=== PATIENT | male | born 1955 | race Caucasian/White ===

== ENCOUNTER → 2017-05-02 | Outpatient (CLI) | payer BC ==
[2017-05-02 11:49] LABS: Basophils # (A) 0.1 k/uL (0-0.2); Basophils % (A) 1 %; CH 32.7; CHCM 33.8; Eosinophils # (A) 0.2 k/uL (0-0.7); Eosinophils % (A) 3 %; HCT 52.8 % (39.0-53.0); HDW 2.83; HGB 17.1 gm/dL (13.0-17.5); Luc # (Auto) 0.22; Luc % (Auto) 3; Lymphocytes # (A) 2.9 k/uL (1.0-4.8); Lymphocytes % (A) 34 %; MCH 31.7 pg (25.0-35.0); MCHC 32.5 g/dL (31.0-37.0); MCV 97.5 fL (80.0-100.0); Mean Platelet Volume 8.8; Monocytes # (A) 0.5 k/uL (0-1.0); Monocytes % (A) 6 %; Neutrophils # (A) 4.4 k/uL (1.3-7.7); Neutrophils % (A) 53 %; RBC 5.42 m/uL (4.30-5.90); RDW 15.5 % (11.5-15.5); WBC 8.3 k/uL (3.8-10.6); WBC (Perox) 7.61
[2017-05-02 12:52] LABS: ALT 25 U/L (21-72); AST 21 U/L (17-59); Alkaline Phosphatase 45 U/L (38-126); Anion Gap 13 mmol/L; Blood Urea Nitrogen 21 mg/dL (9-20); Calcium 9.6 mg/dL (8.4-10.2); Carbon Dioxide 24 mmol/L (22-30); Chloride 104 mmol/L (98-107); Cholesterol 191 mg/dL (<200); Glucose 79 mg/dL (74-99); HDL Cholesterol 65 mg/dL (40-60); Non-African American GFR(MDRD) >60 (>60 ml/min/1.73 sqM); Sodium 141 mmol/L (137-145); Total Bilirubin 0.5 mg/dL (0.2-1.3); Total Protein 7.7 g/dL (6.3-8.2)
[2017-05-02 14:48] LABS: Hemoglobin A1C 5.2 % (4.2-6.1)
[2017-05-05 08:17] LABS: HCV Qualitative Result Not detected (Not detected)
== END | disposition home or self-care (01) ==
LOC: LABWHC1 11:06
PROVIDERS: ATTEND Internal Medicine
DX: E78.5 Hyperlipidemia, unspecified (principal); J44.9 Chronic obstructive pulmonary disease, unspecified; E11.9 Type 2 diabetes mellitus without complications; G89.4 Chronic pain syndrome; I10 Essential (primary) hypertension
CPT/HCPCS: 36415; 80053; 80061; 83036; 84439; 84443; 85025; 86803; 87522

== ENCOUNTER → 2018-05-25 | Outpatient (CLI) | payer MEDICARE ==
[2018-05-25 11:44] LABS: HCT 47.6 % (39.0-53.0); HGB 15.5 gm/dL (13.0-17.5); MCH 29.9 pg (25.0-35.0); MCHC 32.6 g/dL (31.0-37.0); MCV 91.7 fL (80.0-100.0); Mean Platelet Volume 8.1; Platelet Count 204 k/uL (150-450); RBC 5.19 m/uL (4.30-5.90); WBC 8.9 k/uL (3.8-10.6)
[2018-05-25 13:48] LABS: Eosinophils # (M) 0.09 k/uL (0-0.7); Lymphocytes # (M) 3.29 k/uL (1.0-4.8); Monocytes # (M) 0.53 k/uL (0-1.0); Neutrophils # (M) 4.98 k/uL (1.3-7.7); Neutrophils % (M) 56 %; Nucleated Red Blood Cells 0 /100 WBC (0-0); Total Cells Counted 100
[2018-05-25 16:31] LABS: T4, Free (Free Thyroxine) 1.3 ng/dL (0.80-1.80)
[2018-05-25 16:42] LABS: Albumin 4.2 g/dL (3.80-4.90); Albumin/Globulin Ratio 1.83 (1.20-2.10); Anion Gap 6.9 mmol/L (4.00-12.00); Carbon Dioxide 26.1 mmol/L (21.6-31.8); Globulin 2.3 g/dL (2.1-3.7); LDL Cholesterol,Calculated 83.8 mg/dL (0.0-131.0); Potassium 3.9 mmol/L (3.5-5.5); Total Bilirubin 0.3 mg/dL (0.2-1.2); Total Protein 6.5 g/dL (6.2-8.2); VLDL Calculation 46.2 mg/dL (5.00-40.00)
[2018-05-25 19:03] LABS: Hemoglobin A1C 5.7 % (4.0-6.0)
== END | disposition home or self-care (01) ==
LOC: LABWHC1 10:57
PROVIDERS: ATTEND Internal Medicine
DX: Z00.00 Encounter for general adult medical examination without abnormal findings (principal); I10 Essential (primary) hypertension; E78.5 Hyperlipidemia, unspecified; E11.9 Type 2 diabetes mellitus without complications
CPT/HCPCS: 36415; 80053; 80061; 83036; 84439; 84443; 85027

== ENCOUNTER → 2018-10-06 | Outpatient (CLI) | payer MEDICARE ==
--- NOTE | 2018-10-06 15:50 | CT ---
EXAMINATION TYPE: CT chest w con DATE OF EXAM: 10/06/2018 COMPARISON: Correlation radiograph 09/21/2018 HISTORY: 63-year-old male abnormal chest x-ray. hx of COPD TECHNIQUE: Contiguous axial scanning of the chest after the administration of 92cc mL of Isovue 300. Coronal/sagittal reconstructions performed. CT DLP: 788mGycm. Automatic exposure control utilized for a dose reduction. FINDINGS: Heart normal size without pericardial effusion. Coronary vessel calcifications are present. Aorta normal caliber with moderate atherosclerotic arch calcifications and conventional arch vessel b ranching anatomy. Tiny 9 mm hypodense nodule right lobe of the thyroid gland. There is right peritracheal lymphadenopathy measuring up to 3.4 cm and subcarinal lymphadenopathy tatiana suring 2.6 cm. There is right hilar mass encasing the distal right main pulmonary artery and its branches and partia lly encasing the right upper lobe bronchus as well. The mass abuts the anterolateral margin of the br onchus intermedius and extends down to the level of its bifurcation. The mass measures approximately 5.8 cm AP by 4.6 cm wide by 4.9 cm craniocaudal. It cuts off the anterior segmental right upper lobe bronchus causing extensive postobstructive consol idation and volume loss. Additional patchy airspace opacity is present peripherally in the inferior right upper lobe at the mi dlung level. No pleural effusion or nodule seen in the left lung. Visualized upper abdomen shows a 1.5 cm gallstone and marked hepatic steatosis. No mass identified wi thin the adrenal glands. Bones: Moderate degenerative disc disease mid thoracic spine with accentuated midthoracic kyphosis. IMPRESSION: 1. Right hilar mass measuring approximately 5.8 x 4.6 x 4.9 cm encasing the distal right main pulmona ry artery, partially encasing the right upper lobe bronchus, and cutting off the anterior segmental r ight upper lobe branch. The mass extends down, abutting the anterior wall of the bronchus intermedius to the level of its bifurcation. 2. Metastatic right paratracheal and subcarinal lymphadenopathy (measuring up to 3.4 and 2.6 cm, resp ectively). 3. Severe postobstructive pneumonitis and volume loss anterior segment right upper lobe and additiona l patchy postoperative pneumonitis peripheral right midlung. 4. Hepatic steatosis.
== END ==
LOC: RADCTMAIN 14:16
PROVIDERS: ATTEND Internal Medicine Critical Care Medicine
DX: J18.9 Pneumonia, unspecified organism (principal); J44.9 Chronic obstructive pulmonary disease, unspecified; R59.0 Localized enlarged lymph nodes
CPT/HCPCS: 82565; 84520; 71260; 36415; Q9967

== ENCOUNTER 2018-10-13 11:14 | Day surgery (SDC) | payer MEDICARE ==
[2018-10-12 09:01] VITALS: BMI 38.4
[~2018-10-13 11:14] MED LIST: ALBUTEROL NEB (CONC) 2.5 MG/0.5 ML INHALATION ONE; LACTATED RINGERS 1,000 ML IV SCH; LIDOCAINE 2% (PF) 20 MG/ML 5 ML VIAL INHALATION ONE; LIDOCAINE VISCOUS 300 MG/15 ML CUP MUCOUS MEM ONE
[2018-10-13 11:45] LABS: Glucose,Whole Blood 132 mg/dL (75-99)
[2018-10-13] MEDS ORDERED: PROPOFOL 10 MG/ML 20 ML VIAL IV ONE (12:38)
[2018-10-13] MEDS ORDERED: KETAMINE 10 MG/ML 20 ML VIAL ONE (12:38)
[2018-10-13] MEDS ORDERED: LIDOCAINE 1% INJ 10MG/ML (20 ML MDV) ONE (12:38)
[2018-10-13] MEDS ORDERED: fentaNYL (PF) 50 MCG/ML 2 ML AMP ONE (12:38)
[2018-10-13] MEDS ORDERED: MIDAZOLAM 2 MG/2 ML VIAL ONE (12:38)
[2018-10-13] MEDS ORDERED: LIDOCAINE 2% INJ 20 MG/ML INTRATRACH ONE (13:43)
[2018-10-13 13:58] VITALS: TEMP 96.8
[2018-10-13 14:06] LABS: Glucose,Whole Blood 130 mg/dL (75-99)
[2018-10-13 14:20] VITALS: RESP 16
[2018-10-13] MEDS ORDERED: LACTATED RINGERS 1,000 ML IV ONE (14:20)
[2018-10-13 14:44] VITALS: BP 147/85; PULSE 89
--- NOTE | 2018-10-13 17:44 | PCN ---
PROCEDURE NOTE PROCEDURE PERFORMED: Bronchoscopy and endobronchial biopsy of the right upper lobe bronchial endobronchial tumor, brushings of endobronchial tumor/right upper lobe, washings of right upper lobe, and Koo needle aspiration of the anterior carinal lymph node. PREOPERATIVE DIAGNOSIS: Lung mass consistent with bronchogenic carcinoma and positive PET scan. POSTOPERATIVE DIAGNOSIS: Lung carcinoma. The exact the pathology is yet to be determined. ANESTHESIA USED: IV conscious sedation. PROCEDURE: The patient was placed in the supine position, he was prepared according to the bronchoscopy protocol. O2 was applied via nasal cannula, and we monitored his O2 saturation continuously. Blood pressure was intermittently monitored, and cardiac rhythm was continuously monitored. After adequate IV conscious sedation, the area of the right nostril was anesthetized with lidocaine topically. Then the bronchoscope was advanced through the right naris down to the area of the vocal cords, which were noted to be patent. Lidocaine was applied over the vocal cords, the bronchoscope was advanced further down. We examined the trachea, palma, right upper lobe, right middle lobe, right lower lobe, left upper lobe, lingula, and left lower lobe. The findings were positive for extrinsic compression on the distal end of the trachea from the right side, the palma was noted to be full, and the right upper lobe bronchus was noted to be quite full and generous. Then as we entered the right upper lobe, there was endobronchial tumors in the anterior segment of the right upper lobe and another endobronchial tumor was also noted in the apical segment of the right upper lobe. Then we examined the right middle lobe, which was basically intact and as we entered into the right lower lobe, there was clearly some extrinsic compression from the upper aspect down on the right upper lobe with slight narrowing of the right lower lobe bronchus and the lower segments, but they were noted to be patent overall. Then we moved to the left side, and left side was examined, no evidence of any endobronchial tumors or pathology noted on the left side. Then the bronchoscope was placed in the anterior segment of the right upper lobe, and 3 endobronchial biopsies were taken from the endobronchial tumor. Could not do any more biopsies because there was bleeding after each biopsy, and the bleeding was roughly about 30 mL total. Brushings were done. Washings from the right upper lobe were done. Then, we moved into the area of the palma where in there was extrinsic compression on the right carinal area, and a Koo needle aspiration was done at twice from that area. 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 Procedure was well tolerated, no evidence of any immediate complications. The patient was later transferred from the bronchoscopy suite to the recovery room, and I updated him on the findings. EDELMIRA / CARISSAN: [id number] /
== END 2018-10-13 15:05 | disposition home or self-care (01) ==
LOC: ORWHC2ENDO 11:14
PROVIDERS: ATTEND Internal Medicine
DX: R91.8 Other nonspecific abnormal finding of lung field (principal); J44.9 Chronic obstructive pulmonary disease, unspecified; E78.00 Pure hypercholesterolemia, unspecified; E11.9 Type 2 diabetes mellitus without complications; I10 Essential (primary) hypertension; F41.1 Generalized anxiety disorder; M10.9 Gout, unspecified; G89.4 Chronic pain syndrome; G47.33 Obstructive sleep apnea (adult) (pediatric); Z99.89 Dependence on other enabling machines and devices; F17.210 Nicotine dependence, cigarettes, uncomplicated; Z85.819 Personal history of malignant neoplasm of unspecified site of lip, oral cavity, and pharynx; Z79.84 Long term (current) use of oral hypoglycemic drugs; Z79.51 Long term (current) use of inhaled steroids; Z79.891 Long term (current) use of opiate analgesic; Z79.899 Other long term (current) drug therapy
CPT/HCPCS: 94640; 88104; 88108; 88305; 88173; 88342; 88341; 87070; 87205; 87116; 87206; 31629; 31625; J2001 ×3; J2250; J3010; J2704; 31623; 31624; 31628

== ENCOUNTER → 2018-10-28 | Outpatient (CLI) | payer MEDICARE ==
--- NOTE | 2018-10-28 11:14 | MR ---
EXAMINATION TYPE: MR brain wo/w con DATE OF EXAM: 10/28/2018 10:59 AM COMPARISON: NONE HISTORY: Lung CA, headache CONTRAST: Patient received 12.5 mL intravenous Gadavist gadolinium contrast. Multiplanar and multispin-echo imaging of the brain was performed . Pre and post contrast enhanced i mages are obtained. The ventricles, basal cisterns and sulci overlying the cerebral convexities are mildly enlarged. There is evidence of mild periventricular white matter ischemic demyelination. Remote deep white matter insults are also noted. No acute edema is seen on diffusion weighted imaging. There is no evidence for midline shift or mass effect. Acute intracranial hemorrhage or extra-axial collection is not evident. No enhancing lesions are seen. The paranasal sinuses and mastoid air cells are well-aerated. IMPRESSION: Age-related atrophic and chronic small vessel ischemic change. No acute intracranial process at this time. No enhancing lesions are seen.
== END | disposition home or self-care (01) ==
LOC: RADMRIMAIN 10:14
PROVIDERS: ATTEND Internal Medicine Hematology & Oncology
DX: C34.91 Malignant neoplasm of unspecified part of right bronchus or lung (principal); G31.1 Senile degeneration of brain, not elsewhere classified; I67.82 Cerebral ischemia; R51 Headache
CPT/HCPCS: 70553; A9585

== ENCOUNTER → 2018-12-31 | Outpatient (CLI) | payer MEDICARE ==
--- NOTE | 2018-12-31 12:03 | CT ---
EXAMINATION TYPE: CT ChestAbdPelvis w con DATE OF EXAM: 12/31/2018 COMPARISON: Prior PET/CT October 10, 2018. HISTORY: lung CA, observation for mets, currently undergoing chemotherapy and radiation treatment. CT DLP: 2009.6 mGycm. Automated Exposure Control for Dose Reduction was Utilized. CONTRAST: CT scan of the thorax, abdomen and pelvis is performed with oral and with IV Contrast, patient inject ed with 100 mL of Isovue 300. FINDINGS: LUNGS: There is marked interval improvement in right suprahilar mass or neoplasm with some residual s oft tissue measuring approximately 3.0 x 2.0 cm on axial image 26 surrounding upper middle lobe bronc hi causing narrowing. There is marked interval improvement in extension of masslike consolidation or obstructive atelectasis to the anterior right midlung from prior study. Some lateral scarring or atel ectatic change axial image 27 through 29 is redemonstrated stable or minimally improved from PET/CT. No new nodules or masses. No pleural effusion or pneumothorax. MEDIASTINUM: There is marked improvement in subcarinal lymph node now measuring 1.0 x 0.8 cm axial im age 26. There is marked improvement in right paratracheal lymph node now measuring 1.1 x 0.8 cm axial image 19. No new greater than 1 cm lymph nodes are present. Tiny pericardial effusion anterior infer ior aspect axial image 43 is new from prior study. No cardiomegaly is present. Moderate coronary rogelio ry calcification in the distribution is present which is noted marker frontal and coronary artery dis ease OTHER: No additional significant abnormality is seen. LIVER/GB: Dependent small gallstones are present liver is low density consistent with diffuse fatty i nfiltration. PANCREAS: No significant abnormality is seen. SPLEEN: No significant abnormality is seen. ADRENALS: No significant abnormality is seen. KIDNEYS: Symmetric cortical medullary uptake and excretion from both kidneys without hydronephrosis s een bilaterally. Anterior positioning or axis to both kidneys noted. Several apparent 1.6 cm cyst lat erally upper pole right kidney series 5 image 36. BOWEL: The oral contrast does not reach colonic level. Surgical changes from partial right-sided kike ctomy is redemonstrated with sutures axial image 62 anteriorly noted. No suspicious small or large maci wel dilatation. GENITAL ORGANS: No gross abnormality seen. LYMPH NODES: No greater than 1cm abdominal or pelvic lymph nodes are appreciated. OSSEOUS STRUCTURES: Moderate multilevel spurring is most prominent in the mid to lower thoracic spine . OTHER: Moderate to severe calcified plaque of aorta extends into branch vessels. Some scattered pelvi c phleboliths are present. IMPRESSION: Positive treatment response as detailed above. No new metastatic disease is present.
== END | disposition home or self-care (01) ==
LOC: RADCTMAIN 08:57
PROVIDERS: ATTEND Internal Medicine Hematology & Oncology
DX: C34.91 Malignant neoplasm of unspecified part of right bronchus or lung (principal)
CPT/HCPCS: 82565; 84520; 71260; 74177; 36415; Q9967 ×2

== ENCOUNTER 2019-01-07 15:05 | Emergency (ER) | payer MEDICARE ==
[2019-01-07 15:14] VITALS: BP 124/77; TEMP 97
--- NOTE | 2019-01-07 16:21 | ED ---
General Adult HPI - General Chief complaint: Weakness Stated complaint: Leg Pain Time Seen by Provider: 01/07/19 16:02 Source: patient, EMS Mode of arrival: EMS - History of Present Illness Initial comments: 63-year-old male with history of throat and lung cancer status post radiation currently on chemotherapy regimen every 3 weeks. Presenting today for chief complaint of bilateral lower extremity feet pain and coolness. Patient states his feet have been hurting him for the past 3-4 days with the left calf pain more increased than right. He states he is unable to walk secondary to the pain and feels that his feet are cold. Patient has a chest pain or shortness of breath he states he does have home oxygen for his COPD and emphysema. Patient denies any significant lower extremity swelling. He denies any nausea vomiting abdominal pain headache dizziness or any other associated symptoms. Patient denies any fever cough chills or night sweats. 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 - Related Data Home Medications Medication Instructions Recorded Confirmed Niacin [Niacin ER] 500 mg PO DAILY 06/06/14 01/07/19 Potassium Chloride ER [K-Dur 20] 20 meq PO DAILY 06/06/14 01/07/19 Tiotropium [place] [Spiriva] 1 puff INHALATION RT-DAILY 06/06/14 01/07/19 glipiZIDE [Glucotrol XL] 5 mg PO DAILY 06/06/14 01/07/19 metFORMIN HCL [Glucophage] 500 mg PO BID 06/06/14 01/07/19 Allopurinol [Zyloprim] 300 mg PO BID 10/12/18 01/07/19 Budesonide/Formoterol Fumarate 2 puff INHALATION RT-BID 10/12/18 01/07/19 [Symbicort 160-4.5 Mcg Inhaler] Cetirizine HCl [Zyrtec] 10 mg PO DAILY 10/12/18 01/07/19 Cholecalciferol [Vitamin D3] 2,000 unit PO DAILY 10/12/18 01/07/19 Cyanocobalamin (Vitamin B-12) 4,000 mcg PO DAILY 10/12/18 01/07/19 [Vitamin B-12] Furosemide [Lasix] 40 mg PO DAILY 10/12/18 01/07/19 [place]-3 Acid Ethyl Esters [Lovaza] 2 gm PO QID 10/12/18 01/07/19 Simvastatin 40 mg PO DAILY 10/12/18 01/07/19 Venlafaxine HCl [Effexor XR] 225 mg PO DAILY 01/07/19 01/07/19 oxyCODONE-APAP 10-325MG [Percocet 1 tab PO Q6H PRN 01/07/19 01/07/19 10-325 mg] Allergies Allergy/AdvReac Type Severity Reaction Status Date / Time No Known Allergies Allergy Verified 01/07/19 15:17 Review of Systems ROS Statement: Those systems with pertinent positive or pertinent negative responses have been documented in the HPI. ROS Other: All systems not noted in ROS Statement are negative. Past Medical History Past Medical History: Cancer, COPD, Diabetes Mellitus, Hyperlipidemia, Hypertension, Seizure Disorder, Sleep Apnea/CPAP/BIPAP Additional Past Medical History / Comment(s): uses cpap,hs "part of my colon was ", mononucleosis, epilepsy History of Any Multi-Drug Resistant Organisms: None Reported Past Surgical History: Bowel Resection Additional Past Surgical History / Comment(s): lip procedure Past Anesthesia/Blood Transfusion Reactions: No Reported Reaction Additional Past Anesthesia/Blood Transfusion Reaction / Comment(s): no hx blood transfusion Past Psychological History: Anxiety, Depression Smoking Status: Current every day smoker Past Alcohol Use History: Occasional Past Drug Use History: Marijuana - Past Family History Father Family Medical History: Coronary Artery Disease (CAD), Diabetes Mellitus, Hypertension General Exam - General Exam Comments Initial Comments: General: The patient is awake and alert, in no distress Eye: +2 mm pupils are equal, round and reactive to light, extra-ocular movements are intact. No nystagmus. There is normal conjunctiva bilaterally. No signs of icterus. Ears, nose, mouth and throat: There are moist mucous membranes and no oral lesions. Neck: The neck is supple, there is no tenderness or JVD. Cardiovascular: There is a increased rate and rhythm. No murmur, rub or gallop is appreciated. Respiratory: Lungs are clear to auscultation, respirations are non-labored, breath sounds are equal. No wheezes, stridor, rales, or rhonchi. Gastrointestinal: Large scar over midline abdomen. Soft, non-distended, non- tender abdomen without masses or organomegaly noted. There is no rebound or guarding present. No CVA tenderness. Musculoskeletal: Normal ROM, no tenderness. Strength 5/5. Sensation intact. femoral and popliteal pulses equal bilaterally 2+. no palpable DP and PT pulses. Cool distal to mid calf. Blue tint of right foot with bruising. Neurological: A&O x 3. CN II-XII intact, There are no obvious motor or sensory deficits. Coordination appears grossly intact. Speech is normal. Skin: Skin is warm and dry and no rashes or lesions are noted. Psychiatric: Cooperative, appropriate mood & affect, normal judgment. Course Vital Signs 01/07/19 01/07/19 01/07/19 15:07 17:21 18:10 Temperature 97 F L 97 F L Pulse Rate 119 H 66 66 Respiratory 18 16 16 Rate Blood Pressure 124/77 124/77 124/77 O2 Sat by Pulse 99 99 Oximetry - Reevaluation(s) Reevaluation #1: 01/07/19 16:20 b/l pulseless feet capillary refilll was > 6 seconds, Doppler and US were obtained no evidence of pulse. Vascular was consulted immediately and patient was evaluated by attending provider. Dr. Wayne states he will evaluate patient in the ER. EKG Findings - EKG Comments: EKG Findings:: Ventricular rate 112 bpm, [place] interval 236 ms, shortness duration 92 ms, QT/QTC 344/469 ms. This is sinus tachycardia with first-degree AV block. There is nonspecific ST and T-wave abnormalities. No specific ST elevation or depression. Medical Decision Making - Medical Decision Making Is a 63-year-old male presenting for pain for the past 2-3 days of the lower extremities b/l and coolness to palpation. No palpable pulses of the dorsalis pedis and the tibial pulses were noted on examination. After this examination and the only contacted by attending provider evaluate patient confirming pulselessness of bilateral lower extremities. He contacted vascular surgeon Dr. Bartholomew who did evaluate the person in emergency department. He states he believes the obstruction is between the popliteal and posterior tibial region. he staets patient will need localized TPA more than likely and recommended transfer to [facility]. With patient having sustained tachycardia and history of clotting disorder there was concern for possible coinciding pulmonary embolism. Heparin was initiated, high intensity per vascular recommendation. CT angiography chest was obtained prior to patient's transfer. CTA of the chest was only able to be obtained secondary to patients creatinine, vs CTA with runoff. Dr. Bartholomew states he does not need runoff, clinical diagnosis was made. He stated to go forward with CTA of chest. CTA revealed small right lower pulmonary embolism, no right heart strain, tropinin (-).. I spoke with accepting transferring provider Dr. Mitchell at [facility], who accepted admission after discussing case, laboratory studies. aPTT and CTA were pending at this time. He recommendd heparin. Herparin bolus was initiated however aPTT returned si gnificantly elevated, we cancelled order for heparin drip-per attending Dr. Denny recommendation. I attempted on multiple occasions to speak with Dr. Gonzales to discuss CTA results and aPTT. Message was left with nursing staff to give message after multiple attempts. - Lab Data Result diagrams: 01/07/19 16:25 01/07/19 16:25 Lab Results 01/07/19 01/07/19 01/07/19 Range/Units 16:25 16:25 16:25 WBC 12.4 H (3.8-10.6) k/uL RBC 3.13 L (4.30-5.90) m/uL Hgb 10.0 L (13.0-17.5) gm/dL Hct 28.3 L (39.0-53.0) % MCV 90.4 (80.0-100.0) fL MCH 32.1 (25.0-35.0) pg MCHC 35.5 (31.0-37.0) g/dL RDW 20.7 H (11.5-15.5) % Plt Count 88 L (150-450) k/uL Neutrophils % (Manual) 66 % Band Neutrophils % 4 % Lymphocytes % (Manual) 23 % Monocytes % (Manual) 6 % Metamyelocytes % 1 % Neutrophils # (Manual) 8.60 H (1.3-7.7) k/uL Lymphocytes # (Manual) 2.85 (1.0-4.8) k/uL Monocytes # (Manual) 0.74 (0-1.0) k/uL Metamyelocytes # (Man) 0.12 H (0) k/uL Nucleated RBCs 0 (0-0) /100 WBC Manual Slide Review Performed Hyperchromasia Slight Poikilocytosis Slight Anisocytosis Moderate PT (9.0-12.0) sec INR (<1.2) APTT (22.0-30.0) sec D-Dimer (<0.60) mg/L FEU Sodium 137 (137-145) mmol/L Potassium 3.5 (3.5-5.1) mmol/L Chloride 99 (98-107) mmol/L Carbon Dioxide 27 (22-30) mmol/L Anion Gap 11 mmol/L BUN 35 H (9-20) mg/dL Creatinine 1.69 H (0.66-1.25) mg/dL Est GFR (CKD-EPI)AfAm 49 (>60 ml/min/1.73 sqM) Est GFR (CKD-EPI)NonAf 42 (>60 ml/min/1.73 sqM) Glucose 143 H (74-99) mg/dL Plasma Lactic Acid Gómez (0.7-2.0) mmol/L Calcium 9.4 (8.4-10.2) mg/dL Total Bilirubin 1.1 (0.2-1.3) mg/dL AST 155 H (17-59) U/L ALT 56 (21-72) U/L Alkaline Phosphatase 61 (38-126) U/L Troponin I 0.018 (0.000-0.034) ng/mL Total Protein 6.8 (6.3-8.2) g/dL Albumin 3.9 (3.5-5.0) g/dL 01/07/19 01/07/19 Range/Units 17:01 17:01 WBC (3.8-10.6) k/uL RBC (4.30-5.90) m/uL Hgb (13.0-17.5) gm/dL Hct (39.0-53.0) % MCV (80.0-100.0) fL MCH (25.0-35.0) pg MCHC (31.0-37.0) g/dL RDW (11.5-15.5) % Plt Count (150-450) k/uL Neutrophils % (Manual) % Band Neutrophils % % Lymphocytes % (Manual) % Monocytes % (Manual) % Metamyelocytes % % Neutrophils # (Manual) (1.3-7.7) k/uL Lymphocytes # (Manual) (1.0-4.8) k/uL Monocytes # (Manual) (0-1.0) k/uL Metamyelocytes # (Man) (0) k/uL Nucleated RBCs (0-0) /100 WBC Manual Slide Review Hyperchromasia Poikilocytosis Anisocytosis PT 13.8 H (9.0-12.0) sec INR 1.3 H (<1.2) APTT 162.1 H* (22.0-30.0) sec D-Dimer 1.81 H (<0.60) mg/L FEU Sodium (137-145) mmol/L Potassium (3.5-5.1) mmol/L Chloride (98-107) mmol/L Carbon Dioxide (22-30) mmol/L Anion Gap mmol/L BUN (9-20) mg/dL Creatinine (0.66-1.25) mg/dL Est GFR (CKD-EPI)AfAm (>60 ml/min/1.73 sqM) Est GFR (CKD-EPI)NonAf (>60 ml/min/1.73 sqM) Glucose (74-99) mg/dL Plasma Lactic Acid Gó[place] 1.2 (0.7-2.0) mmol/L Calcium (8.4-10.2) mg/dL Total Bilirubin (0.2-1.3) mg/dL AST (17-59) U/L ALT (21-72) U/L Alkaline Phosphatase (38-126) U/L Troponin I (0.000-0.034) ng/mL Total Protein (6.3-8.2) g/dL Albumin (3.5-5.0) g/dL Disposition Clinical Impression: Leg pain, bilateral, Ischemic leg Disposition: OTHER INSTITUTION NOT DEFINED Condition: Serious Is patient prescribed a controlled substance at d/c from ED?: No Referrals: Juan Carlos Ricks MD [Primary Care Provider] - 1-2 days Time of Disposition: 17:11 - Out of Hospital Transfer - Req. Specs Out of Hospital Transfer - Requested Specifics: Other Emergency Center ([facility]
[2019-01-07 17:01] LABS: Albumin 3.9 g/dL (3.5-5.0); Calcium 9.4 mg/dL (8.4-10.2); Potassium 3.5 mmol/L (3.5-5.1); Total Bilirubin 1.1 mg/dL (0.2-1.3); Total Protein 6.8 g/dL (6.3-8.2)
[2019-01-07 17:10] LABS: Anisocytosis Moderate; HCT 28.3 % (39.0-53.0); Hyperchromasia Slight; MCH 32.1 pg (25.0-35.0); MCHC 35.5 g/dL (31.0-37.0); MCV 90.4 fL (80.0-100.0); Mean Platelet Volume 9.1; Poikilocytosis Slight; RBC 3.13 m/uL (4.30-5.90); RDW 20.7 % (11.5-15.5); WBC 12.4 k/uL (3.8-10.6)
[2019-01-07] MEDS ORDERED: HEPARIN SODIUM,PORCINE 5,000 UNIT/ML 1 ML VIAL IV PRN (17:10)
[2019-01-07] MEDS ORDERED: HEPARIN SODIUM,PORCINE 10,000 UNIT/ML 1 ML VIAL IV ONE (17:10)
[2019-01-07] MEDS ORDERED: HEPARIN SOD,PORK IN 0.45% NACL 25,000 UNIT in 0.45% NACL 1 250ML.BAG IV SCH (17:15)
[2019-01-07] MEDS ORDERED: MORPHINE SULFATE 4 MG/ML SYRINGE IVP STA (17:19)
[2019-01-07 17:22] LABS: Platelet Count 88 k/uL (150-450)
[2019-01-07 17:24] VITALS: PULSE 66; RESP 16
[2019-01-07 17:25] LABS: Band Neutrophils % 4 %; Lymphocytes # (M) 2.85 k/uL (1.0-4.8); Metamyelocytes # (M) 0.12 k/uL (0); Metamyelocytes % 1 %; Monocytes # (M) 0.74 k/uL (0-1.0); Neutrophils % (M) 66 %; Nucleated Red Blood Cells 0 /100 WBC (0-0); Total Cells Counted 100
--- NOTE | 2019-01-07 17:43 | XR ---
EXAMINATION TYPE: XR chest 2V DATE OF EXAM: 01/07/2019 COMPARISON: 09/21/2018 HISTORY: Weakness TECHNIQUE: Frontal and lateral views of the chest are obtained. FINDINGS: There is no heart failure. There is some coarse linear density in the lateral right upper lobe. The other lung [place] are clear. There is no pleural effusion. IMPRESSION: There is chronic linear infiltrate and atelectasis in the right upper lobe not significa ntly different than last exam. Normal heart.
[2019-01-07 17:47] LABS: INR 1.3 (<1.2); Prothrombin Time 13.8 sec (9.0-12.0)
[2019-01-07 17:53] LABS: D-Dimer 1.81 mg/L FEU (<0.60)
[2019-01-07 17:57] LABS: Partial Thromboplastin Time 162.1 sec (22.0-30.0)
--- NOTE | 2019-01-07 18:05 | CT ---
EXAMINATION TYPE: CT angio chest DATE OF EXAM: 01/07/2019 5:39 PM COMPARISON: None HISTORY: Ischemic limbs. CT DLP: mGycm Automated exposure control for dose reduction was used. CONTRAST: CTA scan of the thorax is performed , patient injected with mL of , pulmonary embolism protocol. . The contrast was Isovue 16 mL. There are 3-D post processed images. FINDINGS: There is patchy linear infiltrate and atelectasis in both lower lobes. There is wedge-shaped airspace patchy consolidation in the lateral aspect of the right middle lobe adjacent to the major fissure. T here is no pericardial effusion. There is no pleural effusion. Upper abdominal soft tissues are intact. There are enlarged right bronchial lymph nodes that measure up to 2 cm. There is no mediastinal adeno sinan. Thoracic aorta is atheromatous. There is irregular plaque formation within the lumen of the de scending thoracic aorta. There is spurring in the thoracic spine. I see no bony destructive process. There is small filling defect in a branch of the posterior basal segment right lower lobe pulmonary a rtery. IMPRESSION: COARSE INFILTRATE AND ATELECTASIS IN BOTH LOWER LOBES AND ALSO THE RIGHT MIDDLE LOBE WITH RIGHT BRONC HIAL ADENOPATHY. THIS MORE LIKELY RELATES TO INFLAMMATORY DISEASE. SMALL EMBOLISM IN RIGHT LOWER LOBE PULMONARY ARTERY. EXTENSIVE PLAQUE FORMATION WITHIN THE THORACIC AORTA WITH IRREGULAR SURFACE THAT SUGGESTS A SOURCE OF EMBOLIC DISEASE. THIS EXAM WAS DISCUSSED WITH ER PHYSICIAN AT 6:00 PM.
--- NOTE | 2019-01-07 20:10 | HP ---
HISTORY AND PHYSICAL This is a 63 -year-old gentleman who came to the emergency room with 4 days duration of the left leg pain. The patient has history of CA of the lung, post chemo and radiation. The patient also has a history of COPD on home oxygen. PAST SURGICAL HISTORY: Patient had a colon resection in the past. PHYSICAL EXAMINATION: Patient was seen in his room. The patient has excruciating pain to the left calf. Brachial radial pulses are present. Femorals are 2+. There is no Doppler signal noted in the right and left foot. The patient has some motor function present on the left side. Right side also. Patient has marked tenderness in the left calf tenderness. IMPRESSION: Bilateral lower extremity ischemia. The patient has Factor XII deficiency. PLAN: Heparinize the patient. The patient will need a tPA and discussed with Dr. Domingo Miranda. The patient will have a tPA and we will transfer him to [facility]. Risks and complications discussed with the patient and family. They understand. Thank you very much for this consultation. EDELMIRA / CARISSAN: [id number] /
== END 2019-01-07 18:14 | disposition other institution (70) ==
LOC: EC 15:05
DX: I99.8 Other disorder of circulatory system (principal); D68.2 Hereditary deficiency of other clotting factors; J44.9 Chronic obstructive pulmonary disease, unspecified; Z85.118 Personal history of other malignant neoplasm of bronchus and lung; Z92.21 Personal history of antineoplastic chemotherapy; Z92.3 Personal history of irradiation; E11.9 Type 2 diabetes mellitus without complications; E78.5 Hyperlipidemia, unspecified; I10 Essential (primary) hypertension; F41.9 Anxiety disorder, unspecified; F32.9 Major depressive disorder, single episode, unspecified; G47.30 Sleep apnea, unspecified; R00.0 Tachycardia, unspecified; F17.200 Nicotine dependence, unspecified, uncomplicated; Z79.51 Long term (current) use of inhaled steroids; Z79.899 Other long term (current) drug therapy; Z79.84 Long term (current) use of oral hypoglycemic drugs
CPT/HCPCS: 36415; 93005; 85379; 80053; 83605; 84484; 85025; 85610; 85730; 71046; 71275; 99285; 96374; 96375; J2270; J1644; Q9967

== ENCOUNTER → 2019-02-16 | Outpatient (CLI) | payer MEDICARE ==
[2019-02-16 21:42] LABS: African American GFR (CKD) 81.8 (60.0-200.0)
== END | disposition home or self-care (01) ==
LOC: LABWHC1 11:46
PROVIDERS: ATTEND Surgery
DX: I74.3 Embolism and thrombosis of arteries of the lower extremities (principal)
CPT/HCPCS: 36415; 82565; 84520

== ENCOUNTER → 2019-02-23 | Outpatient (CLI) | payer MEDICARE ==
--- NOTE | 2019-02-23 15:25 | CT ---
EXAMINATION TYPE: CT angio abd aorta w/Runoff DATE OF EXAM: 02/23/2019 8:36 AM COMPARISON: None HISTORY: Femoral occlusion CT DLP: 2657 mGycm Automated exposure control for dose reduction was used. TECHNIQUE: Performed with IV Contrast, patient injected with 125 mL of Isovue 370. . FINDINGS: Atheromatous plaquing is within the aorta. Vascular calcification is present. The renal arteries are patent. No aneurysmal dilatation is evident. Early bifurcation is unremarkable. Internal and external iliac vessels are patent. Common femoral arteries are patent. Vascular calcification is present. Pro eder femoris vessels are patent bilaterally. Right lower extremity and Superficial femoral artery: At the origin of the right superficial femoral artery there appears to be obstruction without contrast present. This extends through to the trifurca tion vessels. Collateral flow may fills small trifurcation vessels on the right. Left lower extremity and Superficial femoral artery: The left superficial femoral artery is patent. D ense vascular calcification is in the proximal popliteal artery, likely with stenosis. Popliteal rogelio ry is patent. Trifurcation vessels are identified. The posterior tibial and peroneal arteries. The pa tent within the calf. Posterior tibial artery crosses the level of the ankle. IMPRESSION: 1. OBSTRUCTION OF THE RIGHT SUPERFICIAL FEMORAL ARTERY AT ITS ORIGIN. SMALL COLLATERAL VESSEL MAY REC ONSTITUTE A TRIFURCATION VESSEL. 2. EXTENSIVE VASCULAR CALCIFICATION WITHIN THE BILATERAL LOWER EXTREMITIES.
== END | disposition home or self-care (01) ==
LOC: RADCTMAIN 07:21
PROVIDERS: ATTEND Surgery
DX: I70.203 Unspecified atherosclerosis of native arteries of extremities, bilateral legs (principal); I70.8 Atherosclerosis of other arteries
CPT/HCPCS: 75635; Q9967

== ENCOUNTER → 2019-03-25 | Outpatient (CLI) | payer MEDICARE ==
[2019-03-25 17:00] LABS: Anisocytosis Slight; Basophils # (A) 0.1 k/uL (0-0.2); Basophils % (A) 1 %; Eosinophils # (A) 0.7 k/uL (0-0.7); Eosinophils % (A) 6 %; HCT 40.3 % (39.0-53.0); HGB 12.7 gm/dL (13.0-17.5); Hypochromasia Slight; Lymphocytes # (A) 1.3 k/uL (1.0-4.8); Lymphocytes % (A) 12 %; MCH 32.5 pg (25.0-35.0); MCHC 31.4 g/dL (31.0-37.0); MCV 103.4 fL (80.0-100.0); Macrocytosis Moderate; Mean Platelet Volume 8.2; Monocytes # (A) 0.7 k/uL (0-1.0); Monocytes % (A) 6 %; Neutrophils % (A) 73 %; Platelet Count 248 k/uL (150-450); Poikilocytosis Slight; RDW 17.9 % (11.5-15.5); WBC 10.9 k/uL (3.8-10.6)
[2019-03-25 17:10] LABS: ALT 26 U/L (21-72); AST 42 U/L (17-59); African American GFR (CKD) >90 (>60 ml/min/1.73 sqM); Albumin 4.7 g/dL (3.5-5.0); Alkaline Phosphatase 45 U/L (38-126); Anion Gap 12 mmol/L; Blood Urea Nitrogen 17 mg/dL (9-20); Calcium 10.2 mg/dL (8.4-10.2); Carbon Dioxide 26 mmol/L (22-30); Chloride 103 mmol/L (98-107); Glucose 72 mg/dL (74-99); Potassium 3.8 mmol/L (3.5-5.1); Sodium 141 mmol/L (137-145); Total Bilirubin 0.4 mg/dL (0.2-1.3); Total Protein 8.6 g/dL (6.3-8.2)
[2019-03-26 04:25] LABS: Hemoglobin A1C 3.9 % (4.0-6.0)
== END | disposition home or self-care (01) ==
LOC: LABPAT 16:16
PROVIDERS: ATTEND Surgery
DX: Z01.812 Encounter for preprocedural laboratory examination (principal); I96 Gangrene, not elsewhere classified
CPT/HCPCS: 80053; 83036; 84134; 85025

== ENCOUNTER 2019-04-08 08:27 | Day surgery (SDC) | payer MEDICARE ==
[2019-04-05 14:16] VITALS: BMI 29.5
[~2019-04-08 08:27] MED LIST changes: -ALBUTEROL NEB (CONC) 2.5 MG/0.5 ML INHALATION ONE; +DEXAMETHASONE SOD PHOSPHATE 10 MG/ML 1 ML VIAL IV ONE; +HYDROmorphone 0.5 MG/0.5 ML SYRINGE IVP PRN; -LIDOCAINE 2% (PF) 20 MG/ML 5 ML VIAL INHALATION ONE; -LIDOCAINE VISCOUS 300 MG/15 ML CUP MUCOUS MEM ONE; +ONDANSETRON 4 MG/2 ML VIAL IVP ONE; +SCOPOLAMINE 1.5MG/72HR PATCH TRANSDERM ONE
[2019-04-08 08:55] VITALS: TEMP 96.7
[2019-04-08] MEDS ORDERED: DEXAMETHASONE SOD PHOS (MDV) 100 MG/10 ML VIAL IVP ONE (09:03)
[2019-04-08] MEDS ORDERED: LACTATED RINGERS 1,000 ML IV ONE (09:03)
[2019-04-08] MEDS ORDERED: ONDANSETRON 4 MG/2 ML VIAL IVP ONE (09:03)
[2019-04-08 09:05] LABS: Glucose,Whole Blood 107 mg/dL (75-99)
[2019-04-08] MEDS ORDERED: PROPOFOL 10 MG/ML 20 ML VIAL IV ONE (09:20)
[2019-04-08] MEDS ORDERED: MIDAZOLAM (PF) 2 MG/2 ML VIAL IVP ONE (09:20)
[2019-04-08] MEDS ORDERED: MIDAZOLAM 2 MG/2 ML VIAL ONE (09:20)
[2019-04-08] MEDS ORDERED: PHENYLEPHRINE-0.9% NACL SYG 1 MG/10 ML SYRINGE ONE (09:20)
[2019-04-08 10:13] VITALS: RESP 18
--- NOTE | 2019-04-08 10:16 | P.OP ---
Date of Procedure: 04/08/19 Preoperative Diagnosis: Gangrene right fifth toe Open surgical wound right lower extremity (vein harvest). Postoperative Diagnosis: Same Procedure(s) Performed: #1: Amputation right fifth toe at proximal phalanx. #2 : Debridement (sharp) wound right lower extremity Implants: None Anesthesia: regional Surgeon: Brandon Banegas Estimated Blood Loss (ml): 4 IV fluids (ml): 100 Urine output (ml): 0 Pathology: other (Amputated segment right fifth toe) Condition: stable Disposition: PACU Indications for Procedure: Gangrene right fifth toe Open wound right lower extremity Description of Procedure: Patient was brought the upper and placed in supine position where he received a local block performed by the department of anesthesiology. Patient received intravenously administered prophylactic antibiotics in the perioperative phase. The right lower extremity was then sterilely prepped and draped in usual manner. The right fifth toe was frankly gangrenous and the gangrenous section was amputated with a bone cutter. Utilizing a rongeur the proximal portion of the bone was then removed. The wound was irrigated and was closed with 4-0 nylon suture. Attention was turned to the wound of the right lower extremity. Significant fibrin deposition was noted. The wound measured 11 cm x 3 cm x 1.5 cm. This was debridable with a surgical scalpel blade of fibrin deposition. Good granular tissue was noted throughout essentially the entirety of the wound. The wound along the medial aspect of the leg was then dressed with sweats saline moistened gauze and dry dressing over top. Dry dressing was placed over the amputated portion of the right fifth toe. Patient tolerated the procedure well and was transferred to the recovery area in satisfactory and stable condition.
[2019-04-08 10:17] LABS: Glucose,Whole Blood 108 mg/dL (75-99)
[2019-04-08 10:35] VITALS: BP 137/85; PULSE 97
--- NOTE | 2019-04-08 13:05 | P.ANPRN ---
Procedure Note - Anesthesia - Nerve Block Performed Right Popliteal Single Time Out Performed: Yes Date of Procedure: 04/08/19 Procedure Start Time: Procedure Stop Time: Location of Patient Procedure: PreOp Indication: Acute Post-Operative Pain, Requested by Surgeon Sedation Type: Sedate with meaningful contact maintained Preparation: Sterile Prep Position: Left Lateral Catheter: None Needle Types: Pajunk Needle Gauge: 20 Ultrasound used to visualize needle placement: Yes Ultrasound used to observe medication spread: Yes Injectate: 0.5% Ropivacaine (see comment for volume) (20 ml) Blood Aspirated: No Pain Paresthesia on Injection Noted: No Resistance on Injection: Normal Image Stored and Saved: Yes Events: Uneventful and Well Tolerated
== END 2019-04-08 10:58 | disposition home or self-care (01) ==
LOC: OR 08:27
PROVIDERS: ATTEND Surgery
DX: E11.52 Type 2 diabetes mellitus with diabetic peripheral angiopathy with gangrene (principal); E11.621 Type 2 diabetes mellitus with foot ulcer; E11.69 Type 2 diabetes mellitus with other specified complication; M86.171 Other acute osteomyelitis, right ankle and foot; B96.89 Other specified bacterial agents as the cause of diseases classified elsewhere; I96 Gangrene, not elsewhere classified; I10 Essential (primary) hypertension; J44.9 Chronic obstructive pulmonary disease, unspecified; G47.33 Obstructive sleep apnea (adult) (pediatric); R56.9 Unspecified convulsions; S81.801A Unspecified open wound, right lower leg, initial encounter; F17.200 Nicotine dependence, unspecified, uncomplicated; E78.5 Hyperlipidemia, unspecified; Z79.84 Long term (current) use of oral hypoglycemic drugs; Z79.899 Other long term (current) drug therapy; Z79.51 Long term (current) use of inhaled steroids; Z79.02 Long term (current) use of antithrombotics/antiplatelets; Z85.820 Personal history of malignant melanoma of skin; Z98.890 Other specified postprocedural states; Z98.62 Peripheral vascular angioplasty status; Z85.118 Personal history of other malignant neoplasm of bronchus and lung; Z92.21 Personal history of antineoplastic chemotherapy; Z99.81 Dependence on supplemental oxygen; Z79.891 Long term (current) use of opiate analgesic; X58.XXXA Exposure to other specified factors, initial encounter; Z79.82 Long term (current) use of aspirin
CPT/HCPCS: 28160; 97597; 97598; 64450 ×2; 76942; 88305; 88312; J2250 ×2; J0690; J2405; J1100; J2370; J2704; 64445; 81025

== ENCOUNTER 2019-12-13 16:39 | Emergency (ER) | payer MEDICARE, OTHER ==
[~2019-12-13 16:39] MED LIST changes: -DEXAMETHASONE SOD PHOSPHATE 10 MG/ML 1 ML VIAL IV ONE; +EPINEPHrine 10 ML SYRINGE (0.1 MG/ML) ONE; -HYDROmorphone 0.5 MG/0.5 ML SYRINGE IVP PRN; -LACTATED RINGERS 1,000 ML IV SCH; -ONDANSETRON 4 MG/2 ML VIAL IVP ONE; -SCOPOLAMINE 1.5MG/72HR PATCH TRANSDERM ONE; +SODIUM BICARB 8.4% 50 ML SYR (1 MEQ/ML) ONE
[2019-12-13] MEDS ORDERED: SODIUM CHLORIDE 0.9% 1,000 ML IV STA (16:58)
[2019-12-13 16:59] VITALS: BP 99/62; PULSE 62; RESP 18; TEMP 97.5
--- NOTE | 2019-12-13 17:04 | ED ---
General Adult HPI - General Chief complaint: Cardiac Arrest/CPR Stated complaint: CPR Time Seen by Provider: 12/13/19 16:50 Source: EMS, RN notes reviewed Mode of arrival: EMS Limitations: altered mental status, physical limitation - History of Present Illness Initial comments: Patient is unresponsive 64-year-old male presenting to the emergency department after being found unresponsive by family. EMS found patient unresponsive and did perform CPR for 15 minutes prior to getting pulse back. Patient did lose pulses again just prior to arrival. Patient was found to be in V. fib earlier and was shocked once. Patient was also given epinephrine. Patient unresponsive and unable to provide any history at this time. Patient does have reported hist ory of lung cancer. Review of Systems ROS Statement: Those systems with pertinent positive or pertinent negative responses have been documented in the HPI. ROS Other: All systems not noted in ROS Statement are negative. Limitations: ROS unobtainable due to patients medical condition Respiratory: Reports: cough, dyspnea Cardiovascular: Reports: palpitations Past Medical History History of Any Multi-Drug Resistant Organisms: Unobtainable Past Psychological History: Unable to Obtain Smoking Status: Unknown if ever smoked Past Alcohol Use History: Unable to Obtain Past Drug Use History: Unable to Obtain General Exam Limitations: altered mental status General appearance: obtunded Head exam: Present: atraumatic Eye exam: Present: other (Pupils fixed and dilated) ENT exam: Present: other (Patient intubated with Yonathan tube) Respiratory exam: Present: other (No spontaneous breath sounds. Equal breath sounds with bagging insufflation) Cardiovascular Exam: Present: other (No heart sounds. No pulses without CPR) GI/Abdominal exam: Present: soft. Absent: tenderness Extremities exam: Present: normal inspection Neurological exam: Present: other (Unresponsive. GCS 3.) Psychiatric exam: Present: other (Unresponsive) Skin exam: Absent: rash Course Vital Signs 12/13/19 16:52 Temperature 97.5 F L Pulse Rate 62 Respiratory 18 Rate Blood Pressure 99/62 O2 Sat by Pulse 98 Oximetry - Reevaluation(s) Reevaluation #1: 12/13/19 17:03 Further history from family reveals patient was having some shortness of breath and palpitations today. Patient was coughing brown sputum. 12/13/19 17:04 Patient did receive epinephrine and bicarb and did have return of circulation after approximately 5 minutes of CPR and emergency department 12/13/19 17:38 Patient vault bradycardia then cardiac arrest. CPR was again started and patient given epi and bicarb with return of circulation. Central line placed. 12/13/19 18:07 Patient again arrested and again return of circulation. Pupils still fixed and dilated. Long discussion had with family. Patient does have history of treated lung cancer however has concerns that he may return. She states patient has been aggressively all over the past several weeks, even difficulty with walking and using the bathroom on his own. has decided patient is DO NOT RESUSCITATE. Family member, probable son is also present. RN Tiffany is also present. 12/13/19 18:30 1829. Call to see patient with no heartbeat. Patient is asystole on the monitor. No heart sounds. No spontaneous lung sounds. No pulse. Pupils are fixed and dilated. No chest pain. Time of is 1828. Family is present and aware. Dr. Ricks paged. 12/13/19 18:34 Case was discussed with Dr. Ricks. Case also discussed with medical consultant Ying EKG Findings - EKG Comments: EKG Findings:: Normal sinus rhythm 78. NC 16. QRS 96. QT 356. QTc 45P left axis. Normal QRS. No acute ST change. Procedures - Central Line Placement Right SC Consent Obtained: emergent situation Patient Placed on Monitor/Pulse Ox: Yes Prep: mask, gown, gloves Central Line Prep: Chlorhexidine scrub Ultrasound Used for Placement: No Central Line Lumen Inserted: triple Bloods Obtained for Lab: Yes Central Line Position: good blood return, all ports aspirated, flushed, capped, sutured in place with 3-0 nylon Dressing Applied: Tegaderm Patient Tolerated Procedure: no complications Complications: none Medical Decision Making - Lab Data Result diagrams: 12/13/19 17:37 12/13/19 17:37 Lab Results 12/13/19 12/13/19 Range/Units 17:37 17:37 WBC 30.7 H (3.8-10.6) k/uL RBC 2.69 L (4.30-5.90) m/uL Hgb 7.6 L (13.0-17.5) gm/dL Hct 28.9 L (39.0-53.0) % MCV 107.3 H (80.0-100.0) fL MCH 28.3 (25.0-35.0) pg MCHC 26.4 L (31.0-37.0) g/dL RDW 22.4 H (11.5-15.5) % Plt Count 171 (150-450) k/uL Hypochromasia Marked Anisocytosis Moderate Macrocytosis Marked A Sodium 141 (137-145) mmol/L Potassium 5.6 H (3.5-5.1) mmol/L Chloride 97 L (98-107) mmol/L Carbon Dioxide 16 L (22-30) mmol/L Anion Gap 28 mmol/L BUN 23 H (9-20) mg/dL Creatinine 1.41 H (0.66-1.25) mg/dL Est GFR (CKD-EPI)AfAm 60 (>60 ml/min/1.73 sqM) Est GFR (CKD-EPI)NonAf 52 (>60 ml/min/1.73 sqM) Glucose 96 (74-99) mg/dL Calcium 9.6 (8.4-10.2) mg/dL Total Bilirubin 0.6 (0.2-1.3) mg/dL AST 1382 H (17-59) U/L ALT 193 H (4-49) U/L Alkaline Phosphatase 128 H (38-126) U/L Total Protein 6.7 (6.3-8.2) g/dL Albumin 2.7 L (3.5-5.0) g/dL - Radiology Data Radiology results: image reviewed (Chest x-ray shows extensive bilateral infiltrates ) Critical Care Time Critical Care Time: Yes Total Critical Care Time: 80 Disposition Clinical Impression: Pulmonary infiltrate Disposition: Is patient prescribed a controlled substance at d/c from ED?: No Referrals: None,Stated [Primary Care Provider] - 1-2 days Time of Disposition: 18:31 Preliminary Cause of : Pulmonary infiltrates, cardiopulmonary arrest
--- NOTE | 2019-12-13 18:01 | XR ---
EXAMINATION TYPE: XR chest 1V portable DATE OF EXAM: 12/13/2019 COMPARISON: 01/07/2019 HISTORY: Check tube placement TECHNIQUE: FINDINGS: Endotracheal tube is 1.5 cm from the palma. There is bilateral patchy pulmonary airspace i nfiltrates. This is more in the left lower lobe. There are chest leads. Heart is enlarged. There is n o gross heart failure. IMPRESSION: Bilateral pulmonary extensive infiltrates consistent with RDS or bilateral pneumonia. Thi s appears new compared to old exam. No obvious heart failure.
[2019-12-13 18:12] LABS: Anisocytosis Moderate; HCT 28.9 % (39.0-53.0); HGB 7.6 gm/dL (13.0-17.5); Hypochromasia Marked; MCH 28.3 pg (25.0-35.0); MCHC 26.4 g/dL (31.0-37.0); MCV 107.3 fL (80.0-100.0); Macrocytosis Marked; Platelet Count 171 k/uL (150-450); RBC 2.69 m/uL (4.30-5.90); RDW 22.4 % (11.5-15.5)
[2019-12-13 18:23] LABS: Albumin 2.7 g/dL (3.5-5.0); Calcium 9.6 mg/dL (8.4-10.2); Potassium 5.6 mmol/L (3.5-5.1); Total Bilirubin 0.6 mg/dL (0.2-1.3); Total Protein 6.7 g/dL (6.3-8.2)
[2019-12-13 18:41] LABS: Anisocytosis (M) Present; Band Neutrophils % 22 %; Lymphocytes # (M) 2.74 k/uL (1.0-4.8); Metamyelocytes # (M) 2.74 k/uL (0); Metamyelocytes % 9 %; Monocytes # (M) 1.22 k/uL (0-1.0); Myelocytes # (M) 2.13 k/uL (0); Myelocytes % 7 %; Neutrophils % (M) 50 %; Nucleated Red Blood Cells 1 /100 WBC (0-0); Polychromasia Present; Total Cells Counted 200; WBC 30.4 k/uL (3.8-10.6)
[2019-12-13 18:43] LABS: INR 1.7 (<1.2); Prothrombin Time 16.5 sec (9.0-12.0)
[2019-12-13 18:48] LABS: Partial Thromboplastin Time >200.0 sec (22.0-30.0)
== END 2019-12-13 19:00 | disposition expired ==
LOC: MERGE 16:39 → EC 16:39
DX: R91.8 Other nonspecific abnormal finding of lung field (principal); R05 Cough; Z20.828 Contact with and (suspected) exposure to other viral communicable diseases; Z85.118 Personal history of other malignant neoplasm of bronchus and lung
CPT/HCPCS: 99291; 99292; 31500; 36556; 92950; 36415; 93005; 80053; 84484; 85025; 85610; 85730; 87635; 71045; J0171; 94002